=== PATIENT | female | born 1950 | race Hispanic/Latino ===

== ENCOUNTER 2022-05-04 14:32 | Outpatient (CLI) | payer BC, MEDICARE | END 2022-05-04 14:33 | disposition home or self-care (01) | LOC: CSHULT 14:32 | PROVIDERS: ATTEND Family Medicine | DX: R01.1 Cardiac murmur, unspecified (principal); M79.89 Other specified soft tissue disorders; I35.8 Other nonrheumatic aortic valve disorders; I35.1 Nonrheumatic aortic (valve) insufficiency | CPT/HCPCS: 93306 ==

== ENCOUNTER 2022-08-25 16:03 | Outpatient (CLI) | payer BC, MEDICARE | END 2022-08-25 16:04 | disposition home or self-care (01) | LOC: CSHMAMMO 16:03 | PROVIDERS: ATTEND Family Medicine | DX: Z12.31 Encounter for screening mammogram for malignant neoplasm of breast (principal) | CPT/HCPCS: 77063; 77067 ==

== ENCOUNTER 2023-02-22 11:58 | Outpatient (CLI) | payer BC, MEDICARE ==
[~2023-02-22 11:58] MED LIST: Magnevist 469MG/ML 20 ML VIAL ONE
== END 2023-02-22 11:59 | disposition home or self-care (01) ==
LOC: CSHMRI 11:58
PROVIDERS: ATTEND Family Medicine
DX: G44.52 New daily persistent headache (NDPH) (principal); H53.9 Unspecified visual disturbance; R94.02 Abnormal brain scan
CPT/HCPCS: 70553; A9579